=== PATIENT | female | born 1940 | race Caucasian/White ===

== ENCOUNTER → 2016-05-26 | Outpatient (CLI) | payer MEDICARE ==
[~2016-05-26] MED LIST: ACETAMINOPHEN PO; ADVAIR 250-501 EAC1 IH; ADVAIR 250-501 EAC1 INH; ADVAIR 500-501 EACH INH; ADVAIR 5001 DISK W/1 IH; ADVAIR DISKU1 500/50 INH; ALBUTEROL2.5 MG/3 M INH; ASPIRIN81 M1 PO; ASPIRIN81 M2 PO; ATENOLOL25 MG PO; ATORVASTATIN CA10 MG PO; BENADRYL25 MG PO; BRILINTA90 MG PO; CLARITIN10 M2 PO; CLARITIN10 M3 PO; CLOPIDOGREL75 MG PO; COMBIVENT MININEB INH; COMBIVENT U/D3 M1 INH; COMBIVENT U/D3 M2 INH; COMBIVENT14.7 GM INH; DAZIDOX10 MG PO; FAMOTIDINE10 MG PO; FENOFIBRATE134 MG PO; HUMIBID1200 MG PO; HYDROCODON-ACE1 EAC5 PO; IPRAT-ALBUT 0.5-3 ML INH; LEVAQUIN PO; LISINOPRIL10 MG PO; LISINOPRIL5 MG PO; LORAZEPAM0.5 MG PO; LORAZEPAM1 MG PO; MONTELUKAST SOD10 MG PO; NITROGLYCERIN0.4 MG SL; NITROGLYGERIN0.4 MG SL; OXYCONTIN10 MG PO; OXYGEN; OXYGEN IH; PREDNISONE PO; PREDNISONE5 M1 PO; PREVACID PO; PRINIVIL5 MG PO; PROTONIX PO; SINGULAIR PO; SPIRIVA18 MCG INH; THEO-DUR200 MG PO; THEO-DUR300 MG PO; ZYRTEC5 MG PO
--- NOTE | ~2016-05-26 | US6 ---
[facility] A Service of [facility] & [facility] RADIOLOGY TEXT RESULTS PATIENT: JAVIER CUELLAR LOCATION: [facility] : 39 UNIT #: [id number] AGE: [address]: Sd August MD SEX: F ORDER DR: [id number] [facility] [address] [place], [place] [address] [id number] O MR#: [id number] Acc #: [id number] NAME: JAVIER CUELLAR : 1940 SEX: F STUDY DATE/TIME: 05/26/2016 10:18 UNIT: [facility] ROOM: STUDY DESCRIPTION: US Abdominal Limited Attending Physician: Sd August M.D. Referring Physician: Sd August M.D. Ordering Physician: Sd August M.D. Primary Care Physician: Barbara Silverman M.D. MEDICAL IMAGING REPORT This report is preliminary unless electronic signature is present EXAM Right upper quadrant ultrasound HISTORY Abdomen pain for years. This has been worsening over the past few months. TECHNIQUE Granados scale and color Doppler sonographic images were obtained through the right upper quadrant FINDINGS Visualized portions of the pancreas appear unremarkable. Tempering Oven Operator reports increased liver echotexture, however, this is not clearly identified on the submitted images. Liver overall appears homogeneous on these images. The main portal vein is patent with hepatopetal flow. No obvious focal hepatic lesions are seen. Right kidney is normal in appearance with no solid or cystic renal masses seen and no hydronephrosis identified. I do not see any gallstones and there is no gallbladder wall thickening or pericholecystic fluid. The patient's common bile duct is mildly dilated measuring up to 7-8 mm. No obvious obstructing lesion is seen. IMPRESSION 1. Tempering Oven Operator questions increase of liver echotexture. This is not well demonstrated on the submitted images. 2. The patient does have some mild dilatation of the common bile duct measuring up to 7-8 mm. Clinical significance is uncertain. Correlation with liver function tests is recommended. If these are abnormal, consideration for MRCP or ERCP is suggested. [facility] A Service of [facility] & [facility] RADIOLOGY TEXT RESULTS PATIENT: JAVIER CUELLAR [id number] 39 UNIT #: [id number] AGE: [address]: Sd August MD SEX: F ORDER DR: Dictated by... Jennifer Beckham M.D. THIS IS AN ELECTRONICALLY VERIFIED REPORT Jennifer Beckahm M.D. at 05/27/2016 10:37 AM AFF/to TD: 05/26/2016 18:44 JOB #: [id number] MEDICAL IMAGING REPORT Page 1 of 1 COPY
== END | disposition home or self-care (01) ==
LOC: CGUS 09:48
DX: R10.13 Epigastric pain (principal); K83.8 Other specified diseases of biliary tract
CPT/HCPCS: 76705

== ENCOUNTER → 2016-06-08 | Day surgery (SDC) | payer MEDICARE ==
--- NOTE | ~2016-06-08 | OR ---
Unit #: [id number] #: [id number] Patient: JAVIER CUELLAR [id number] [address] [place], [place] [address] [id number] O MR#: [id number] NAME: JAVIER CUELLAR ROOM: Date of Procedure: 06/08/2016 Admission Date: 06/08/2016 Surgeon: Davidson Jaquez M.D. : 1940 Attending Physician: Davidson Jaquez M.D. Primary Care Physician: Barbara Silverman M.D. OPERATIVE REPORT PREOPERATIVE DIAGNOSES Back pain, radiculopathy, degenerative lumbar disk disease, lumbar spinal stenosis. POSTOPERATIVE DIAGNOSES Back pain, radiculopathy, degenerative lumbar disk disease, lumbar spinal stenosis. PROCEDURE PERFORMED Lumbar epidural steroid injection with intravenous sedation and fluoroscopic guidance for needle localization. INDICATIONS FOR PROCEDURE The patient is a 75-year-old female with return of back and right greater than left lower extremity pain due to multilevel nonsurgical degenerative disk and spine disease. Last injection was done 6 months ago. She did well until last month or so. She has symptoms in the same distribution. Based on history, pathology, and symptomatology, we are going to proceed with a repeat epidural steroid injection today. DESCRIPTION OF PROCEDURE The patient was placed in a seated position. Standard monitors were applied. 2 mg of Versed were given for sedation and anxiolysis, which were adequate. Vital signs remained stable. Sterile prep and drape then of lumbar area was performed. The skin then to the right of midline at the L4 level was localized with 1% lidocaine. An 18-gauge Bubble Motiontead needle was then advanced via loss of resistance technique and right paramedian approach in toward the epidural space. The patient did not complain of pain or paresthesia during needle advancement. After confirming proper positioning with fluoroscopy and radiographic contrast, a dose of 80 mg of Depo-Medrol and 6 mL of 0.125% bupivacaine were deposited. The patient tolerated the procedure otherwise well and was discharged to the recovery room in stable condition. Dictated by... Davidson Jaquez M.D. P/modl Unit #: [id number] #: [id number] Patient: JAVIER CUELLAR TD: 06/08/2016 23:03 JOB #: [id number] OPERATIVE REPORT Page 1 of 1 X Davidson Jaquez MD X PROCEDURE OPERATIVE NOTE
== END | disposition home or self-care (01) ==
LOC: CCSC 09:08
DX: M51.16 Intervertebral disc disorders with radiculopathy, lumbar region (principal); M48.06 Spinal stenosis, lumbar region; J44.9 Chronic obstructive pulmonary disease, unspecified; I25.10 Atherosclerotic heart disease of native coronary artery without angina pectoris; K21.9 Gastro-esophageal reflux disease without esophagitis
CPT/HCPCS: J1040; J2250

== ENCOUNTER → 2016-06-15 | Day surgery (SDC) | payer MEDICARE ==
--- NOTE | ~2016-06-15 | OR ---
Unit #: [id number] #: [id number] Patient: JAVIER CUELLAR [id number] [address] [place] [address] [place], [place] [address] [id number] O MR#: [id number] NAME: JAVIER CUELLAR ROOM: Date of Procedure: 06/15/2016 Admission Date: 06/15/2016 Surgeon: Davidson Jaquez M.D. : 1940 Attending Physician: Davidson Jaquez M.D. Primary Care Physician: Barbara Silverman M.D. OPERATIVE REPORT PREOPERATIVE DIAGNOSES Back pain, radiculopathy, degenerative lumbar disk disease and lumbar spinal stenosis. POSTOPERATIVE DIAGNOSES Back pain, radiculopathy, degenerative lumbar disk disease and lumbar spinal stenosis. PROCEDURE PERFORMED Lumbar epidural steroid injection with intravenous sedation under fluoroscopic guidance for needle localization. INDICATIONS FOR PROCEDURE The patient is a 75-year-old female with return of back, left greater than right lower extremity pain. She has known multilevel degenerative disk disease with severe and multiple levels in her lumbar spine. She had been treated with epidural steroid injections on lower aspect and upper aspect of her lumbar spine. Certainly doing better with the ones in the lower lumbar spine. Repeat injection was done last week, after having previously done well for about 6 months. The patient had 60-75% settling of her symptom complex. We are going to proceed with a second injection to see if she gets a better longer term improvement. DESCRIPTION OF PROCEDURE The patient was placed in a seated position. Standard monitors were applied. Then, 2 mg of Versed were given for sedation and anxiolysis, which were adequate. Vital signs remained stable. Sterile prep and drape then of the lumbar area was performed. The skin then to the right of midline was localized with 1% lidocaine. An 18-gauge ICAgentead needle was advanced via right paramedian approach with loss of resistance technique in toward the epidural space. The patient tolerated the procedure otherwise well and was discharged to recovery room in stable condition. Dictated by... Noe Roger/divine TD: 06/15/2016 13:04 JOB #: [id number] Unit #: [id number] #: [id number] Patient: JAVIER CUELLAR OPERATIVE REPORT Page 1 of 1 X Davidson Jaquez MD X PROCEDURE OPERATIVE NOTE
== END | disposition home or self-care (01) ==
LOC: CCSC 09:44
DX: M51.16 Intervertebral disc disorders with radiculopathy, lumbar region (principal); M48.06 Spinal stenosis, lumbar region; J44.9 Chronic obstructive pulmonary disease, unspecified; I25.10 Atherosclerotic heart disease of native coronary artery without angina pectoris; K21.9 Gastro-esophageal reflux disease without esophagitis; Z88.8 Allergy status to other drugs, medicaments and biological substances; Z91.041 Radiographic dye allergy status; Z79.82 Long term (current) use of aspirin; Z79.899 Other long term (current) drug therapy
CPT/HCPCS: J1040; J2250

== ENCOUNTER → 2016-07-15 | Outpatient (CLI) | payer MEDICARE ==
--- NOTE | ~2016-07-15 | NM21 ---
[facility] A Service of [facility] & [facility] RADIOLOGY TEXT RESULTS PATIENT: JAVIER CUELLAR LOCATION: [facility] : 39 UNIT #: [id number] AGE: [address]: Jorge Kwon MD SEX: F ORDER DR: [id number] [facility] [address] [facility]. [place], [place] [address] [id number] O MR#: [id number] Acc #: [id number] NAME: JAVIER CUELLAR : 1940 SEX: F STUDY DATE/TIME: 07/15/2016 12:15 UNIT: [facility] ROOM: STUDY DESCRIPTION: OR Hepatobiliary W GB Attending Physician: Jorge Kwon M.D. Referring Physician: Jorge Kwon M.D. Ordering Physician: Jorge Kwon M.D. Primary Care Physician: Barbara Silverman M.D. MEDICAL IMAGING REPORT This report is preliminary unless electronic signature is present EXAM HIDA scan, 07/15/2016, [facility]. HISTORY 75-year-old woman with a history of epigastric, right upper quadrant pain radiating to back. Diarrhea, nausea, vomiting, bloating. Chronic symptoms beginning 2 years ago. COMPARISON Ultrasound 05/26/2016. PROCEDURE Procedure was carefully explained to the patient. Following intravenous injection of 5.37 mCi of technetium 99m Choletec, serial images were recorded over the right upper quadrant at 15-minute intervals through 60 minutes followed by images at 90 minutes and 2 hours. There is prompt identification of activity in bile ducts and small bowel with progressive accumulation in the small bowel. There is no activity identified in the gallbladder. IMPRESSION 1. Abnormal HIDA scan with no activity recorded in the gallbladder at 2 hours. This is presumptive evidence of cystic duct obstruction and acute cholecystitis. Surgical consultation is recommended. 2. Patient was asked to follow up with her referring healthcare provider. STAT * RESULT Dictated by... Moi Hubbard M.D. [facility] A Service of [facility] & [facility] RADIOLOGY TEXT RESULTS PATIENT: JAVIER CUELLAR LOCATION: [facility] #: [id number] : 39 UNIT #: [id number] AGE: [address]: Jorge Kwon MD SEX: F ORDER DR: THIS IS AN ELECTRONICALLY VERIFIED REPORT Moi Hubbard M.D. at 07/15/2016 2:43 PM BLUE/meredith TD: 07/15/2016 14:30 JOB #: [id number] MEDICAL IMAGING REPORT Page 1 of 1 COPY
== END | disposition home or self-care (01) ==
LOC: CNUC 11:21
DX: R10.13 Epigastric pain (principal); R10.11 Right upper quadrant pain; R93.2 Abnormal findings on diagnostic imaging of liver and biliary tract; K81.0 Acute cholecystitis; K83.1 Obstruction of bile duct
CPT/HCPCS: 78226; A9537

== ENCOUNTER → 2016-08-04 | Day surgery (SDC) | payer MEDICARE ==
--- NOTE | ~2016-08-04 | EKG ---
PATIENT: JAVIER CUELLAR UNIT #: [id number] Ventricular Rate: 88 BPM Atrial Rate: 88 BPM P-R Interval: 118 ms QRS Duration: 80 ms Q-T Interval: 352 ms QTC Calculation(Bezet): 425 ms P Poplar: 75 degrees Calculated R Poplar: 54 degrees Calculated T Poplar: 56 degrees Diagnosis Line: Normal sinus rhythm Diagnosis Line: Normal ECG Diagnosis Line: When compared with ECG of 19-JUN-2015 12:35, Diagnosis Line: No significant change was found Diagnosis Line: Confirmed by SHIRA IBRAHIM MD ([id number]) on 08/05/2016 Diagnosis Line: 8:20:49 PM INTERPRETING MD: PATRICE MAYS
--- NOTE | ~2016-08-04 | OR ---
Unit #: [id number] #: [id number] Patient: JAVIER CUELLAR [id number] [address] [place], [place] [address] [id number] O MR#: [id number] NAME: JAVIER CUELLAR. ROOM: Date of Procedure: 08/04/2016 Admission Date: 08/04/2016 Surgeon: Jorge Kwon M.D. : 1940 Attending Physician: Jorge Kwon M.D. Primary Care Physician: Barbara Silverman M.D. OPERATIVE REPORT PRIMARY CARE PHYSICIAN Barbara Silverman M.D. PREOPERATIVE DIAGNOSES Epigastric and upper abdominal pain and history of colon polyps. PROCEDURES PERFORMED Upper gastrointestinal endoscopy and biopsy as well as attempted colonoscopy, which was aborted. POSTOPERATIVE DIAGNOSES For upper endoscopy: 1. The patient had distal esophageal Schatzki ring. This was felt to be nonobstructing, but was treated by repeated punch biopsy of the same area of the ring. 2. Small hiatus hernia. 3. Mild antral gastritis. A biopsy obtained from the antrum for CLOtest. 4. Rest of the examination up to third part of duodenum was normal. For colonoscopy: 1. The procedure had to be aborted as the patient had solid fecal impaction in the distal sigmoid colon, which could not be resolved with water jet. The patient therefore have to have additional prep, which will use at home. This was explained in detail to the patient and [id number] and they will take magnesium citrate 2 bottles tonight along with a lot of clear liquids. She will come back for repeat attempt at colonoscopy tomorrow morning. SEDATION USED MAC. DESCRIPTION OF PROCEDURE Following detailed explanation of the potential risks and complications of an upper endoscopy and a colonoscopy, namely perforation, bleeding, and complications related to sedation, the patient was brought to GI lab and laid in the left lateral decubitus position. Lubricated tip of the Olympus video upper endoscope was passed through bite block into the proximal esophagus under direct vision. The entire esophageal mucosa was examined. The patient was noted to have distal esophageal Schatzki ring. The latter was felt to be wide open and nonobstructing. In addition, a small hiatus hernia was noted. The scope was then advanced into the gastric cavity and latter was insufflated. Mucosa of the fundus, body, and antrum examined and mild antral erythema was noted. Pylorus was Unit #: [id number] #: [id number] Patient: JAVIER CUELLAR intubated with visualization of the normal duodenal bulb and second and third part of the duodenum. Upon withdrawal and retroflexion, incisura, cardia, and greater curve examined and no additional findings noted. Biopsies obtained from the antrum for CLOtest. The scope was withdrawn in the distal esophagus. Multiple punch biopsies obtained in the same area of the ring to make it ineffective. The scope was then withdrawn all the way up to pharynx. No additional findings noted. The examination table was then turned by 180 degrees and the patient positioned for a colonoscopy. A digital rectal examination was performed, which was normal. Lubricated tip of the Olympus video colonoscope was inserted through the anus and advanced under direct vision. The scope was advanced, past rectum into the sigmoid colon. A large solid fecal bowel or fecalith was seen in this area. This could not be dislodged despite distal manipulation as well as by a water jet. It was therefore decided to repeat the examination tomorrow after additional prep. The scope was then withdrawn. The patient returned to the recovery area. She tolerated the procedure without any postprocedure complications. Dictated by... Noe Tsang TD: 08/04/2016 17:49 JOB #: [id number] CC: . OPERATIVE REPORT Page 1 of 1 X Jorge Kwon MD X PROCEDURE OPERATIVE NOTE
[2016-08-04 13:57] LABS: BASOPHIL# 0.1 X10e3 (0-0.3); BASOPHIL% 1.2 % (0-2.5); EOSINOPHIL# 0.1 X10e3 (0-0.7); EOSINOPHIL% 2.7 % (0.0-7.0); HEMATOCRIT 36.8 % (35.0-45.0); HEMOGLOBIN 12.3 gm/dL (12.0-16.0); LYMPHOCYTE% 20.5 % (17.0-45.0); MEAN CELL VOLUME 95.9 FL (83-96); MEAN CORPUSCULAR HGB CONC 33.3 g/dL (30-36); MONOCYTE# 0.3 X10e3 (0-1.0); MONOCYTE% 6.3 % (3.0-12.0); NEUTROPHIL# 3.3 X10e3 (1.5-7.1); NEUTROPHIL% 69.3 % (40-75); PLATELET COUNT 267 X10e3 (140-420); RED BLOOD COUNT 3.83 X10e (3.90-5.30); RED CELL DISTRIBUTION WIDTH 13.6 % (11.0-15.5); WHITE BLOOD COUNT 4.8 X10e3 (4.0-10.5)
[2016-08-04 13:58] LABS: DIFF IND NO
== END | disposition home or self-care (01) ==
LOC: COPS 13:06
PROVIDERS: Internal Medicine Gastroenterology
DX: K22.2 Esophageal obstruction (principal); K44.9 Diaphragmatic hernia without obstruction or gangrene; K29.70 Gastritis, unspecified, without bleeding; K56.41 Fecal impaction; K21.9 Gastro-esophageal reflux disease without esophagitis; M19.90 Unspecified osteoarthritis, unspecified site; I25.10 Atherosclerotic heart disease of native coronary artery without angina pectoris; J44.9 Chronic obstructive pulmonary disease, unspecified; Z86.010 Personal history of colon polyps; Z87.440 Personal history of urinary (tract) infections; Z87.891 Personal history of nicotine dependence; Z99.81 Dependence on supplemental oxygen; Z88.8 Allergy status to other drugs, medicaments and biological substances; Z91.041 Radiographic dye allergy status; Z91.048 Other nonmedicinal substance allergy status; Z95.5 Presence of coronary angioplasty implant and graft; Z90.710 Acquired absence of both cervix and uterus; Z98.42 Cataract extraction status, left eye; Z98.41 Cataract extraction status, right eye; Z79.891 Long term (current) use of opiate analgesic; Z79.899 Other long term (current) drug therapy; Z79.82 Long term (current) use of aspirin; Z79.01 Long term (current) use of anticoagulants
CPT/HCPCS: 85025; 87077; 93005

== ENCOUNTER → 2016-08-05 | Day surgery (SDC) | payer MEDICARE ==
--- NOTE | ~2016-08-05 | OR ---
Unit #: [id number] #: [id number] Patient: JAVIRE CUELLAR [id number] [address] [address] [id number] O MR#: [id number] NAME: JAVIER CUELLAR. ROOM: Date of Procedure: 08/05/2016 Admission Date: 08/05/2016 Surgeon: Jorge Kwon M.D. : 1940 Attending Physician: Jorge Kwon M.D. Referring Physician: Jorge Kwon M.D. Primary Care Physician: Barbara Silverman M.D. OPERATIVE REPORT PREOPERATIVE DIAGNOSIS History of large polyps removed in the past. PROCEDURE PERFORMED Colonoscopy up to cecum and terminal ileum with excellent preparation and good visualization. POSTOPERATIVE DIAGNOSES 1. The patient had mild sigmoid and descending colon diverticulosis. Otherwise, examination was normal up to cecum and terminal ileum. The quality of prep was excellent. 2. It is noteworthy the patient had to take the colonic prep almost 3 to 4 times over the past couple of days. She has advanced colonic inertia and severe constipation as a result of intake of narcotic analgesics for back pain. RECOMMENDATIONS 1. The patient will use daily MiraLAX and Senokot and also prescription was given for Linzess in case the MiraLAX and Senokot combination is not helpful. She must at least attain 2 to 3 significant bowel movements a week in order to stay free of any potential problems in the future. 2. The patient does not need any future colonoscopies. SEDATION USED MAC. DESCRIPTION OF PROCEDURE Following detailed explanation of potential risks and complications of a colonoscopy, namely perforation, bleeding, complication related to sedation, the patient was brought to GI lab and laid in the left lateral decubitus position. A digital rectal examination was performed, which was normal. Lubricated tip of the Olympus video colonoscope was inserted through the anus and advanced under direct vision. The scope was advanced past rectosigmoid into descending colon. Scant small diverticula were noted in this area. The scope tip was then navigated all the way up to cecum with visualization of the ileocecal valve and the appendiceal orifice. Preparation was excellent with good visualization and photodocumentation was obtained. Last several inches of the terminal ileum were also visualized after intubation of the ileocecal valve and appeared normal. Successive segments of the colonic mucosa were examined upon withdrawal and appeared unremarkable. There being no polyps, mass lesions, or AVMs. Other than the scant diverticula seen in the left side, Unit #: [id number] #: [id number] Patient: JAVIER CUELLAR no other abnormalities were noted. The patient did not have any hemorrhoids at the anal verge. The scope was then withdrawn and the patient returned to the recovery area. She tolerated the procedure without any postprocedure complications. Dictated by... Noe Tsang/divine TD: 08/05/2016 17:50 JOB #: [id number] CC: Barbara Silverman M.D. OPERATIVE REPORT Page 1 of 1 X Jorge Kwon MD X PROCEDURE OPERATIVE NOTE
--- NOTE | ~2016-08-05 | OR ---
Unit #: [id number] #: [id number] Patient: JAVIER CUELLAR [id number] [address] [place], [place] [address] [id number] O MR#: [id number] NAME: JAVIER CUELLAR. ROOM: Date of Procedure: 08/05/2016 Admission Date: 08/05/2016 Surgeon: Jorge Kwon M.D. : 1940 Attending Physician: Jorge Kwon M.D. Referring Physician: Jorge Kwon M.D. Primary Care Physician: Barbara Silverman M.D. OPERATIVE REPORT PREOPERATIVE DIAGNOSES The patient has come for surveillance colonoscopy. She has personal history of removal of large colonic adenomas in the past. PROCEDURE PERFORMED Colonoscopy up to cecum and terminal ileum with excellent preparation and good visualization. POSTOPERATIVE DIAGNOSES Localized moderately severe sigmoid diverticulosis. Otherwise, normal examination up to cecum and terminal ileum. The quality of the prep was excellent. It is noteworthy that the patient was scheduled to have colonoscopy along with upper endoscopy yesterday, but had solid fecal impaction. RECOMMENDATIONS The patient was given a regimen of MiraLAX, Senokot, and Linzess to be taken regularly to avoid impaction in the future. It is noteworthy she is on long-term OxyContin prescribed by Dr. Dayne Jaquez for back pain. SEDATION USED MAC. DESCRIPTION OF PROCEDURE Following detailed explanation of the potential risks and complications of a colonoscopy, namely perforation, bleeding, and complications related to sedation, the patient was brought to GI lab and laid in the left lateral decubitus position. A digital rectal examination was performed, which was normal. Lubricated tip of the Olympus video colonoscope was inserted through the anus and advanced under direct vision. The scope was advanced past rectosigmoid into descending colon. Scant small diverticula were noted in this area. The scope tip was then navigated all the way up to cecum with visualization of the ileocecal valve and the appendiceal orifice. Preparation was excellent with good visualization and photodocumentation was obtained. Last several inches of terminal ileum were also visualized after intubation of the ileocecal valve and appeared normal. Successive segments of the colonic mucosa were examined upon withdrawal and appeared unremarkable. There being no polyps, mass lesions, or AVMs. Other than the diverticula noted in the sigmoid colon, no other abnormalities were noted. The patient did not have any hemorrhoids at anal verge. The scope was then withdrawn and the patient returned to the recovery area. She tolerated the procedure without any Unit #: [id number] #: [id number] Patient: JAVIER CUELLAR postprocedure complications. Dictated by... Noe Tsang/divine TD: 08/07/2016 18:10 JOB #: [id number] OPERATIVE REPORT Page 1 of 1 X Jorge Kwon MD X PROCEDURE OPERATIVE NOTE
== END | disposition home or self-care (01) ==
LOC: COPS 07:30
DX: K59.03 Drug induced constipation (principal); T40.605A Adverse effect of unspecified narcotics, initial encounter; K57.30 Diverticulosis of large intestine without perforation or abscess without bleeding; J45.909 Unspecified asthma, uncomplicated; I25.10 Atherosclerotic heart disease of native coronary artery without angina pectoris; J44.9 Chronic obstructive pulmonary disease, unspecified; M19.90 Unspecified osteoarthritis, unspecified site; K21.9 Gastro-esophageal reflux disease without esophagitis; Z87.440 Personal history of urinary (tract) infections; Z86.010 Personal history of colon polyps; Z88.8 Allergy status to other drugs, medicaments and biological substances; Z91.041 Radiographic dye allergy status; Z91.048 Other nonmedicinal substance allergy status; Z99.81 Dependence on supplemental oxygen; Z79.82 Long term (current) use of aspirin; Z79.02 Long term (current) use of antithrombotics/antiplatelets; Z79.891 Long term (current) use of opiate analgesic; Z79.899 Other long term (current) drug therapy; Z79.51 Long term (current) use of inhaled steroids; Z95.5 Presence of coronary angioplasty implant and graft; Z90.710 Acquired absence of both cervix and uterus; Z98.42 Cataract extraction status, left eye; Z98.41 Cataract extraction status, right eye; Z96.1 Presence of intraocular lens; Z98.890 Other specified postprocedural states

== ENCOUNTER → 2016-08-20 | Day surgery (SDC) | payer MEDICARE ==
--- NOTE | ~2016-08-20 | CR63 ---
[facility] A Service of [facility] & [facility] RADIOLOGY TEXT RESULTS PATIENT: JAVIER CUELLAR LOCATION: [facility] : 39 UNIT #: [id number] AGE: [address]: David Jarrell MD SEX: F ORDER DR: [id number] [facility] [address] [facility] [facility] [place], [place] [address] [id number] O MR#: [id number] Acc #: [id number] NAME: JAVIER CUELLAR : 1940 SEX: F STUDY DATE/TIME: 08/20/2016 UNIT: [facility] ROOM: STUDY DESCRIPTION: CR Chest 2 View Attending Physician: David Jarrell Jr., M.D. Referring Physician: David Jarrell Jr., M.D. Ordering Physician: David Jarrell Jr., M.D. Primary Care Physician: Barbara Silverman M.D. MEDICAL IMAGING REPORT This report is preliminary unless electronic signature is present EXAM Chest 2 views 08/20/2016 0948 hours HISTORY 76-year-old with cough and congestion today. History of hypertension. Preop for gallbladder surgery. COMPARISON 06/20/2015 FINDINGS Upright PA and lateral views of the chest demonstrate normal cardiac, mediastinal and hilar contours. The aorta is normal. The lungs are hyperinflated with emphysematous change. There are calcified granulomata. No acute pulmonary density or pleural effusion. IMPRESSION Stable moderate emphysematous change with calcified granulomata. There is no acute cardiopulmonary finding or appreciable change from 06/20/2015. Dictated by... Judith Saldivar M.D. THIS IS AN ELECTRONICALLY VERIFIED REPORT Judith Saldivar M.D. at 08/20/2016 2:31 PM SERGO/clara TD: 08/20/2016 13:01 JOB #: [id number] MEDICAL IMAGING REPORT Page 1 of 1 COPY
--- NOTE | ~2016-08-20 | OR ---
Unit #: [id number] #: [id number] Patient: JVAIER CUELLAR [id number] [address] [place], [place] [address] [id number] O MR#: [id number] NAME: JAVEIR CUELLAR ROOM: Date of Procedure: 08/20/2016 Admission Date: 08/20/2016 Surgeon: David Jarrell Jr., M.D. : 1940 Attending Physician: David Jarrell Jr., M.D. Referring Physician: David Jarrell Jr., M.D. Primary Care Physician: Barbara Silverman M.D. OPERATIVE REPORT INDICATIONS FOR PROCEDURE The patient is a 76-year-old white female, who has recently had problems with abdominal pain, nausea, vomiting, and workup revealed evidence of nonvisualization of her gallbladder indicating probable acute cholecystitis without stones. She was brought in this time for laparoscopic cholecystectomy. She understands the procedure including the risks, including that of common duct injury, biliary leak, bleeding, and intra-abdominal organ injury, and consents. PREOPERATIVE DIAGNOSIS Acute on chronic cholecystitis without cholelithiasis. POSTOPERATIVE DIAGNOSES Acute on chronic cholecystitis without cholelithiasis, noting chronic adhesions, but no evidence of any acute cholecystitis, but no obvious stones. ANESTHESIA General with endotracheal intubation and 0.5% Marcaine with epinephrine locally. PROCEDURES PERFORMED Laparoscopic lysis of adhesions, requiring approximately 10 minutes and laparoscopic cholecystectomy. DESCRIPTION OF PROCEDURE The patient was positioned in supine position. After being anesthetized and intubated, she was prepped and draped in routine fashion for laparoscopic cholecystectomy. A small infraumbilical incision was made approximately a centimeter in length and this was carried down to the fascia. The fascia was lifted between 2 Cristina clamps and a Veress needle introduced into the abdomen. The abdomen was then inflated with CO2 gas. A 5-mm port was introduced in the abdomen followed by the camera. There was no evidence of any injury related to introduction of the port or the Veress needle. Brief intra-abdominal exploration was carried out. The patient was noted to have evidence of some adhesions in the lower abdomen and to the right lobe of the liver laterally. The gallbladder appeared chronically inflamed and had adhesions of the omentum to it. Two 5-mm ports were placed laterally in the right lateral abdominal wall area and 11-mm port just to the right of the upper midline. The gallbladder was lifted. Multiple adhesions were taken down with hook scissors as well as blunt dissection for an approximately 10 minutes and after these were Unit #: [id number] #: [id number] Patient: JAVIER CUELLAR S completely divided and the gallbladder freed up, dissection was carried out on the triangle of Calot. Cystic duct and cystic artery were both identified, hemoclipped x4, and divided approximately a centimeter from the junction near the common duct. The common duct appeared normal. The gallbladder was then removed from its bed with the hook cautery using a current of 20 and after it was released, it was removed through the upper midline incision along with the grasping clamp and the port. The port was replaced. Subhepatic space checked. There was no evidence of any bleeding from the adhesions and no evidence of any bleeding from the gallbladder bed. The clips on cystic duct and cystic artery were intact with no evidence of any leak or bleeding. After small amount of blood was absorbed on one sponge placed intraabdominal brought out. The sponge count was correct x3. The CO2 was expressed from the abdomen after the fascia in the larger port site was approximated using the neoClose technique. After CO2 was expressed from the abdomen, ports were removed. There was no evidence of any bleeding from the port sites. The port sites were injected with 0.5% Marcaine with epinephrine and irrigated and after hemostasis was achieved with Bovie cautery, the skin edges were approximated with stainless-steel skin clips and skin stapling device. Sterile dressings were applied externally. Estimated blood loss less than 20 mL. The patient received less than 1000 mL of crystalloid solution during the procedure. Sponges and instrument counts were correct x3. No drains were used. No complications. The patient was taken to the recovery room with stable vital signs in satisfactory condition. Dictated by... David Jarrell Jr., M.D. JMB/divine TD: 08/21/2016 06:20 JOB #: [id number] OPERATIVE REPORT Page 1 of 1 X David Jarrell MD PROCEDURE OPERATIVE NOTE
[2016-08-20 11:11] LABS: ALBUMIN SERUM 4.1 g/dL (3.5-5.0); BILIRUBIN,TOTAL 0.3 mg/dL (0.2-2.0); BUN/CREATININE RATIO 8.57; CALCIUM SERUM 9.2 mg/dL (8.4-10.2); CREATININE SERUM 0.7 mg/dL (0.6-1.4); GLOM FILT RATE Estimated 83.6 mL/min (>60); POTASSIUM 4.5 mmol/L (3.5-5.1); PROTEIN TOTAL SERUM 6.4 g/dL (6.0-8.3)
== END | disposition home or self-care (01) ==
LOC: CSUR 08:56
PROVIDERS: Surgery
DX: K81.0 Acute cholecystitis (principal); K81.1 Chronic cholecystitis; J44.9 Chronic obstructive pulmonary disease, unspecified; I10 Essential (primary) hypertension; I25.10 Atherosclerotic heart disease of native coronary artery without angina pectoris
CPT/HCPCS: 71020; 80053; 88304; J0330; J0690; J1100; J1170; J1644; J2250; J2405; J2550; J2710; J3010

== ENCOUNTER → 2016-09-14 | Outpatient (CLI) | payer MEDICARE ==
--- NOTE | ~2016-09-14 | US85 ---
[facility] A Service of [facility] & [facility] RADIOLOGY TEXT RESULTS PATIENT: JAVIER CUELLAR LOCATION: [facility]IV : 38 UNIT #: [id number] AGE: [address]: LESLI LAROSE APRN SEX: F ORDER DR: [id number] [facility] [address] [place], [place] [address] [id number] O MR#: [id number] #: [id number] NAME: JAVIER CUELLAR : 1940 SEX: F STUDY DATE/TIME: 09/14/2016 16:29 UNIT: CNIV ROOM: STUDY DESCRIPTION: LE Veins Unilat or Ltd Stdy Attending Physician: Lesli Larose Np Referring Physician: Lesli Larose Np Ordering Physician: Lesli Larose Np Primary Care Physician: Barbara Silverman M.D. MEDICAL IMAGING REPORT This report is preliminary unless electronic signature is present EXAM Left lower extremity venous duplex, 09/14/2016 HISTORY Left lower extremity pain for 2 weeks with history of lower extremity deep vein thrombosis. FINDINGS Granados-scale images of the left lower extremity were obtained as well as Doppler waveform spectral analysis and color flow Doppler imaging. There is normal blood flow and compressibility in the left common femoral vein, deep femoral vein, superficial femoral vein and popliteal vein. Normal blood flow and compressibility is seen in the left calf veins. There is a 4 cm x 1 cm x 2.6 cm fluid collection in the left popliteal fossa characteristic of a Nix's cyst. IMPRESSION 1. No evidence of deep vein thrombosis in the left lower extremity. 2. 4 cm fluid collection in the left popliteal fossa characteristic of a Nix's cyst. Dictated by... Yakov Kelley M.D. THIS IS AN ELECTRONICALLY VERIFIED REPORT Yakov Kelley M.D. at 09/15/2016 2:38 PM KRT/philip TD: 09/15/2016 00:49 JOB #: [id number] MEDICAL IMAGING REPORT [facility] A Service of [facility] & [facility] RADIOLOGY TEXT RESULTS PATIENT: JAVIER CUELLAR LOCATION: [facility] : 38 UNIT #: [id number] AGE: [address]: LESLI LAROSE APRN SEX: F ORDER DR: Page 1 of 1 COPY
== END | disposition home or self-care (01) ==
LOC: CNIV 15:50
DX: M79.605 Pain in left leg (principal)
CPT/HCPCS: 93971